=== PATIENT | female | born 1975 | race Caucasian/White ===

== ENCOUNTER → 2017-06-26 13:53 | Outpatient (CLI) | payer MEDICARE, MEDICAID ==
[2011-02-08 18:00] VITALS: BMI 33.5
== END | disposition home or self-care (01) ==
LOC: D.US 13:53
DX: N93.9 Abnormal uterine and vaginal bleeding, unspecified (principal)

== ENCOUNTER → 2018-04-16 14:45 | Outpatient (CLI) | payer MEDICARE, MEDICAID ==
[2011-02-08 18:00] VITALS: BMI 33.5
== END | disposition home or self-care (01) ==
LOC: D.MRI 14:45
DX: S14.109D Unspecified injury at unspecified level of cervical spinal cord, subsequent encounter (principal); X58.XXXA Exposure to other specified factors, initial encounter

== ENCOUNTER → 2020-02-11 12:55 | Outpatient (CLI) | payer MEDICARE, MEDICAID ==
[2011-02-08 18:00] VITALS: BMI 33.5
== END | disposition home or self-care (01) ==
LOC: D.CT 12:55
PROVIDERS: ATTEND Nurse Practitioner Family
DX: R31.9 Hematuria, unspecified (principal)